=== PATIENT | male | born 1945 | race Hispanic/Latino ===

== ENCOUNTER 2020-09-29 21:16 | Inpatient (IN) | payer OTHER ==
[~2020-09-29] VITALS: Ht 172.7 cm; Wt 105.7 kg
[2020-09-29 21:59] LABS: BASOPHILS # (AUTO) 0.1 (0.0-0.1); BASOPHILS % 0.4 % (0.0-1.0); EOSINOPHILS # (AUTO) 0.1 (0.0-0.4); EOSINOPHILS % 0.7 % (0.0-6.0); HEMOGLOBIN 16.5 g/dL (14.0-18.0); LYMPHOCYTES # (AUTO) 2.8 (1.0-3.2); LYMPHOCYTES % 16.7 % (18.0-39.1); MEAN CORPUSCULAR HGB CONC 32.4 g/dL (31-35); MEAN CORPUSCULAR VOLUME 92.7 fL (81-99); MONOCYTES # (AUTO) 0.8 (0.2-0.8); MONOCYTES % 5.1 % (4.4-11.3); NEUTROPHILS # (AUTO) 12.8 (2.1-6.9); NEUTROPHILS % 76.6 % (38.7-80.0); PLATELET COUNT 323 x10e3/uL (140-360)
[2020-09-29 22:15] LABS: BACTERIA,URINE FEW /HPF; CLARITY,URINE CLEAR (CLEAR); COLOR,URINE YELLOW (YELLOW); EPITHELIAL CELLS,URINE FEW /LPF; KETONES,URINE NEGATIVE (NEGATIVE); LEUKOCYTE ESTERASE ,URINE NEGATIVE (NEGATIVE); NITRITE,URINE NEGATIVE (NEGATIVE); PROTEIN,URINE DIPSTICK NEGATIVE (NEGATIVE); RBC,URINE 0-5 /HPF (0-5); URINE UROBILINOGEN 0.2 mg/dL (0.2 - 1); WBC,URINE (MAN) 0-5 /HPF (0-5)
[2020-09-29 22:20] LABS: AMYLASE 38 U/L (25-125); LIPASE 30 U/L (8-78)
[2020-09-29 22:22] LABS: ALBUMIN/GLOBULIN RATIO 1.1 (0.8-2.0); ANION GAP 16.3 mmol/L (8-16); CALCIUM 9.3 mg/dL (8.4-10.2); CREATININE, SERUM 1.47 mg/dL (0.72-1.25); POTASSIUM 4.3 mmol/L (3.5-5.1)
[2020-09-29 22:28] LABS: CREATINE KINASE MB 2.6 ng/mL (0-5.0)
[2020-09-29] MEDS ORDERED: IOPAMIDOL 370 MG/ML 200 ML INFUS..BTL INJ ONE (22:38)
[2020-09-29] MEDS ORDERED: SODIUM CHLORIDE 0.9% 50ML 50 ML ONE (22:39)
[2020-09-29] MEDS ORDERED: MORPHINE SULFATE INJ 2 MG/ML SYR IV STA (23:49)
[2020-09-29] MEDS ORDERED: ONDANSETRON HCL INJ 2MG/ML 2ML 2 MG/ML VIAL IV STA (23:49)
[2020-09-30] VITALS (8 sets, daily range): BP systolic 113–171; BP diastolic 60–89
[2020-09-30] MEDS ORDERED: PIPERACILLIN/TAZOBAC 3.375 GM VIAL ONE ×2 (00:29→04:17)
[2020-09-30] MEDS: PIPERACILLIN/TAZOBAC 3.375 GM in DEXTROSE 5% 50ML 50 ML IV SCH ×2 (00:34→05:22)
[2020-09-30] MEDS: METRONIDAZOLE 500MG/NS 100ML 100 ML IV SCH ×4 (00:43→18:42)
[2020-09-30] MEDS ORDERED: DEXTROSE 50% SYRINGE 50 ML IV PRN (01:15)
[2020-09-30] MEDS: SODIUM CHLORIDE 0.9% 1000ML 1,000 ML IV SCH ×4 (02:05→23:51)
[2020-09-30] MEDS ORDERED: SODIUM CHLORIDE 0.9% 50ML 50 ML ONE (04:18)
[2020-09-30] MEDS: MORPHINE SULFATE INJ 2 MG/ML SYR IV PRN ×4 (08:56→20:20)
[2020-09-30] MEDS ORDERED: ZEBETA10 MG PO (10:23)
[2020-09-30] MEDS ORDERED: FARXIGA5 MG (10:23)
[2020-09-30] MEDS ORDERED: GLIMEPIRIDE2 MG PO (10:23)
[2020-09-30] MEDS ORDERED: VASOTEC10 M1 PO (10:23)
[2020-09-30] MEDS: PIPERACILLIN/TAZOBAC 3.375 GM in SODIUM CHLORIDE 0.9% 50ML 50 ML IV SCH ×2 (13:45→22:00)
[2020-09-30] MEDS: ONDANSETRON HCL INJ 2MG/ML 2ML 2 MG/ML VIAL IV PRN (20:20)
[2020-09-30] MEDS: ACETAMINOPHEN 325 MG TAB PO PRN (23:56)
[2020-10-01] VITALS (8 sets, daily range): BP systolic 123–156; BP diastolic 53–82
[2020-10-01] MEDS: MORPHINE SULFATE INJ 2 MG/ML SYR IV PRN ×2 (05:18→17:57)
[2020-10-01] MEDS: PIPERACILLIN/TAZOBAC 3.375 GM in SODIUM CHLORIDE 0.9% 50ML 50 ML IV SCH ×3 (05:18→22:12)
[2020-10-01] MEDS: ONDANSETRON HCL INJ 2MG/ML 2ML 2 MG/ML VIAL IV PRN (05:18)
[2020-10-01] MEDS: METRONIDAZOLE 500MG/NS 100ML 100 ML IV SCH ×4 (06:00→17:47)
[2020-10-01 06:16] LABS: BASOPHILS # (AUTO) 0.1 (0.0-0.1); BASOPHILS % 0.4 % (0.0-1.0); HEMATOCRIT 47.2 % (38.2-49.6); HEMOGLOBIN 15.4 g/dL (14.0-18.0); LYMPHOCYTES # (AUTO) 1.6 (1.0-3.2); MEAN CORPUSCULAR HEMOGLOBIN 30.6 pg (28-32); MEAN CORPUSCULAR HGB CONC 32.6 g/dL (31-35); MEAN CORPUSCULAR VOLUME 93.7 fL (81-99); MONOCYTES # (AUTO) 1.2 (0.2-0.8); MONOCYTES % 5.2 % (4.4-11.3); NEUTROPHILS # (AUTO) 19.2 (2.1-6.9); NEUTROPHILS % 86.3 % (38.7-80.0); PLATELET COUNT 252 x10e3/uL (140-360); RED BLOOD COUNT 5.04 x10e6/uL (4.3-5.7); RED CELL DISTRIBUTION WIDTH 13.7 % (11.7-14.4)
[2020-10-01 06:36] LABS: ALBUMIN 2.9 g/dL (3.5-5.0); ALBUMIN/GLOBULIN RATIO 0.8 (0.8-2.0); ANION GAP 15.1 mmol/L (8-16); CALCIUM 8.4 mg/dL (8.4-10.2); CREATININE, SERUM 1.42 mg/dL (0.72-1.25); POTASSIUM 4.1 mmol/L (3.5-5.1)
[2020-10-01 07:25] LABS: BAND NEUTROPHILS % (MANUAL) 4 %; LYMPHOCYTES % (MANUAL) 8 % (19-48); METAMYELOCYTES % (MANUAL) 2 % (0-0); MONOCYTES % (MANUAL) 6 % (3.4-9.0); NEUTROPHILS % (MANUAL) 79 % (40-74)
[2020-10-01 07:26] LABS: PLATELET ESTIMATE ADEQUATE; PLATELET MORPHOLOGY COMMENT NORMAL; RBC MORPHOLOGY COMMENT NORMAL
[2020-10-01] MEDS: SODIUM CHLORIDE 0.9% 1000ML 1,000 ML IV SCH ×2 (09:16→17:47)
[2020-10-01] MEDS: ACETAMINOPHEN 325 MG TAB PO PRN (09:16)
[2020-10-01] MEDS ORDERED: DEXTROSE 50% SYRINGE 50 ML IV PRN (11:45)
[2020-10-01] MEDS: INSULIN REGULAR, HUMAN 100 UNIT/1 ML 3ML VIAL SQ SCH ×2 (16:30→20:00)
[2020-10-01] MEDS: DEXMEDETOMIDINE HCL 200 MCG in SODIUM CHLORIDE 0.9% 50ML 48 ML IV SCH (20:04)
[2020-10-02] VITALS (16 sets, daily range): BP systolic 66–165; BP diastolic 46–83
[2020-10-02] MEDS: MORPHINE SULFATE INJ 2 MG/ML SYR IV PRN ×2 (00:26→06:39)
[2020-10-02] MEDS: METRONIDAZOLE 500MG/NS 100ML 100 ML IV SCH ×2 (00:27→06:39)
[2020-10-02] MEDS: PIPERACILLIN/TAZOBAC 3.375 GM in SODIUM CHLORIDE 0.9% 50ML 50 ML IV SCH (05:48)
[2020-10-02] MEDS: INSULIN REGULAR, HUMAN 100 UNIT/1 ML 3ML VIAL SQ SCH ×3 (07:30→18:00)
[2020-10-02 08:18] LABS: BASOPHILS % 0.4 % (0.0-1.0); HEMATOCRIT 49.2 % (38.2-49.6); HEMOGLOBIN 15.7 g/dL (14.0-18.0); LYMPHOCYTES # (AUTO) 1.2 (1.0-3.2); LYMPHOCYTES % 11.2 % (18.0-39.1); MEAN CORPUSCULAR HEMOGLOBIN 30.3 pg (28-32); MEAN CORPUSCULAR HGB CONC 31.9 g/dL (31-35); MONOCYTES # (AUTO) 0.5 (0.2-0.8); MONOCYTES % 4.6 % (4.4-11.3); NEUTROPHILS % 82.8 % (38.7-80.0); PLATELET COUNT 280 x10e3/uL (140-360); RED BLOOD COUNT 5.18 x10e6/uL (4.3-5.7); RED CELL DISTRIBUTION WIDTH 13.9 % (11.7-14.4)
[2020-10-02 08:37] LABS: ANION GAP 18.2 mmol/L (8-16); CALCIUM 8.9 mg/dL (8.4-10.2); CREATININE, SERUM 1.6 mg/dL (0.72-1.25); POTASSIUM 4.2 mmol/L (3.5-5.1)
[2020-10-02] MEDS ORDERED: HYDROMORPHONE 1MG/1ML INJ ONE (12:42)
[2020-10-02] MEDS ORDERED: ACETAMINOPHEN 1000 MG/100 ML 100 ML IV ONE (12:42)
[2020-10-02] MEDS ORDERED: KETAMINE HCL INJ 50 MG/ML 10 ML VIAL ONE (13:00)
[2020-10-02] MEDS ORDERED: FENTANYL CITRATE/PF 100MCG/2 ML INJ ONE (13:00)
[2020-10-02] MEDS ORDERED: ALBUMIN 25% 12.5GM 50ML 100 ML IV ONE (13:38)
[2020-10-02] MEDS: SODIUM CHLORIDE 0.9% 1000ML 1,000 ML IV SCH ×2 (14:16→18:36)
[2020-10-02] MEDS: BISOPROLOL FUMARATE 10 MG TAB PO SCH (17:00)
[2020-10-02] MEDS ORDERED: LACTATED RINGER'S 1,000 ML INJ ONE (17:00)
[2020-10-02] MEDS ORDERED: ROCURONIUM BROMIDE 10 MG/ML 5ML VIAL IV ONE (17:15)
[2020-10-02] MEDS ORDERED: SEVOFLURANE INHAL SOLN 250 ML PEN BTL ONE (17:15)
[2020-10-02] MEDS ORDERED: LIDOCAINE HCL 2% LOCAL INJ 5 ML SDV VIAL INJ ONE (17:15)
[2020-10-02] MEDS ORDERED: PROPOFOL IV EMULSION 10 MG/ML 20 ML VIAL ONE (17:15)
[2020-10-02] MEDS ORDERED: PHENYLEPHRINE HCL 1% 10 MG/ML VIAL ONE (17:15)
[2020-10-02] MEDS ORDERED: LACTATED RINGER'S 1,000 ML ONE (17:20)
[2020-10-02] MEDS ORDERED: MIDAZOLAM HCL 2 MG/2 ML VIAL ONE (17:27)
[2020-10-02] MEDS ORDERED: FENTANYL CITRATE INJ 2,000 MCG in SODIUM CHLORIDE 0.9% 250ML 210 ML IV SCH (17:45)
[2020-10-02] MEDS: PANTOPRAZOLE 40 MG 10ML VIAL IV SCH (18:32)
[2020-10-02] MEDS: MEROPENEM 1GM 100 ML IV SCH (18:32)
[2020-10-02] MEDS: SODIUM CHLORIDE 0.9% 250ML IRRIG IR SCH (18:36)
[2020-10-02] MEDS ORDERED: DEXMEDETOMIDINE 200MCG/NS 50ML 50 ML IV ONE (19:33)
[2020-10-02] MEDS ORDERED: FENTANYL 2000MCG/NS 250 250 ML ONE (19:34)
[2020-10-02] MEDS ORDERED: NOREPINEPHRINE 8 MG/D5W 250 ML 250 ML ONE (19:51)
[2020-10-02 20:46] LABS: BASOPHILS # (AUTO) 0.1 (0.0-0.1); BASOPHILS % 0.4 % (0.0-1.0); HEMATOCRIT 43.8 % (38.2-49.6); HEMOGLOBIN 13.5 g/dL (14.0-18.0); LYMPHOCYTES # (AUTO) 1.4 (1.0-3.2); MEAN CORPUSCULAR HEMOGLOBIN 29.9 pg (28-32); MEAN CORPUSCULAR HGB CONC 30.8 g/dL (31-35); MEAN CORPUSCULAR VOLUME 96.9 fL (81-99); MONOCYTES % 6.5 % (4.4-11.3); NEUTROPHILS # (AUTO) 13.1 (2.1-6.9); NEUTROPHILS % 83.5 % (38.7-80.0); PLATELET COUNT 315 x10e3/uL (140-360); RED BLOOD COUNT 4.52 x10e6/uL (4.3-5.7); RED CELL DISTRIBUTION WIDTH 14.2 % (11.7-14.4)
[2020-10-02 20:57] LABS: ANION GAP 21.6 mmol/L (8-16); CALCIUM 7.5 mg/dL (8.4-10.2); CREATININE, SERUM 2.75 mg/dL (0.72-1.25); POTASSIUM 4.6 mmol/L (3.5-5.1)
[2020-10-02] MEDS ORDERED: SODIUM CHLORIDE 0.9% 1000ML 2,000 ML IV ONE (21:00)
[2020-10-02 22:06] LABS: BAND NEUTROPHILS % (MANUAL) 11 %; LYMPHOCYTES % (MANUAL) 12 % (19-48); MONOCYTES % (MANUAL) 6 % (3.4-9.0); NEUTROPHILS % (MANUAL) 71 % (40-74)
[2020-10-02 22:07] LABS: PLATELET ESTIMATE ADEQUATE; PLATELET MORPHOLOGY COMMENT NORMAL; RBC MORPHOLOGY COMMENT NORMAL
[2020-10-03] VITALS (26 sets, daily range): BP systolic 87–125; BP diastolic 43–99
[2020-10-03 00:31] LABS: ABG HCO3 16 mmol/L (22-26); ABG PCO2 33 mmHg (35-45); ABG PH 7.31 (7.35-7.45); ABG PO2 273 mmHg (80-105)
[2020-10-03 00:32] LABS: ABG TCO2 17
[2020-10-03] MEDS: SODIUM CHLORIDE 0.9% 250ML IRRIG IR SCH ×7 (01:23→20:15)
[2020-10-03] MEDS: NOREPINEPHRINE INJ 4MG/4ML 8 MG in DEXTROSE 5% 250ML 250 ML IV SCH ×3 (01:24→22:03)
[2020-10-03] MEDS: SODIUM CHLORIDE 0.9% 1000ML 1,000 ML IV SCH ×3 (01:24→23:45)
[2020-10-03] MEDS: MEROPENEM 1GM 100 ML IV SCH ×2 (01:25→09:10)
[2020-10-03] MEDS: INSULIN REGULAR, HUMAN 100 UNIT/1 ML 3ML VIAL SQ SCH ×4 (01:25→18:00)
[2020-10-03] MEDS: DEXMEDETOMIDINE HCL 200 MCG in SODIUM CHLORIDE 0.9% 50ML 48 ML IV SCH (01:28)
[2020-10-03] MEDS: METRONIDAZOLE 500MG/NS 100ML 100 ML IV SCH ×5 (06:19→23:45)
[2020-10-03] MEDS: BISOPROLOL FUMARATE 10 MG TAB PO SCH ×2 (08:25→17:00)
[2020-10-03] MEDS: FENTANYL 2000MCG/NS 250 250 ML IV SCH (09:10)
[2020-10-03 10:00] LABS: ABG HCO3 20 mmol/L (22-26); ABG PCO2 43 mmHg (35-45); ABG PH 7.27 (7.35-7.45); ABG PO2 78 mmHg (80-105); ABG TCO2 21
[2020-10-03] MEDS ORDERED: SODIUM BICARBONATE 8.4% SYRING 150 ML in DEXTROSE 5% 1,000 ML IV ONE (10:00)
[2020-10-03] MEDS ORDERED: SODIUM CHLORIDE 0.9% 1000ML 1,000 ML IV SCH ×3 (10:00→12:15)
[2020-10-03] MEDS ORDERED: SODIUM CHLORIDE 0.9% 1000ML 2,000 ML IV SCH (10:15)
[2020-10-03] MEDS ORDERED: [UNRECOGNIZED DRUG - MIXTURE] IV SCH ×2 (10:30)
[2020-10-03] MEDS ORDERED: SODIUM BICARBONATE 8.4% SYRING 150 ML in DEXTROSE 5% 1,000 ML IV SCH (10:45)
[2020-10-03] MEDS ORDERED: SODIUM CHLORIDE 0.9% 1000ML 200 ML IV ONE (11:00)
[2020-10-03] MEDS ORDERED: ACETAMINOPHEN 1000 MG/100 ML IV PRN (11:15)
[2020-10-03] MEDS ORDERED: FUROSEMIDE INJ 10 MG/ML 4 ML VIAL IV ONE (12:30)
[2020-10-03] MEDS ORDERED: CALCIUM CHLORIDE 13.6 MEQ in SODIUM CHLORIDE 0.9% 100 ML 100 ML IV ONE (12:45)
[2020-10-03 12:56] LABS: BASOPHILS # (AUTO) 0.1 (0.0-0.1); BASOPHILS % 0.3 % (0.0-1.0); EOSINOPHILS % 0.1 % (0.0-6.0); HEMATOCRIT 37.7 % (38.2-49.6); HEMOGLOBIN 11.6 g/dL (14.0-18.0); LYMPHOCYTES # (AUTO) 2.3 (1.0-3.2); LYMPHOCYTES % 12.4 % (18.0-39.1); MEAN CORPUSCULAR HEMOGLOBIN 30.1 pg (28-32); MEAN CORPUSCULAR HGB CONC 30.8 g/dL (31-35); MEAN CORPUSCULAR VOLUME 97.9 fL (81-99); MONOCYTES # (AUTO) 1.8 (0.2-0.8); MONOCYTES % 9.7 % (4.4-11.3); NEUTROPHILS # (AUTO) 14.1 (2.1-6.9); NEUTROPHILS % 75.7 % (38.7-80.0); PLATELET COUNT 287 x10e3/uL (140-360); RED BLOOD COUNT 3.85 x10e6/uL (4.3-5.7); RED CELL DISTRIBUTION WIDTH 14.6 % (11.7-14.4)
[2020-10-03 13:19] LABS: ALBUMIN 1.7 g/dL (3.5-5.0); ALBUMIN/GLOBULIN RATIO 0.6 (0.8-2.0); ANION GAP 12.6 mmol/L (8-16); CREATININE, SERUM 4.1 mg/dL (0.72-1.25); POTASSIUM 4.6 mmol/L (3.5-5.1)
[2020-10-03 13:21] LABS: CALCIUM 6.5 mg/dL (8.4-10.2)
[2020-10-03] MEDS ORDERED: MIDAZOLAM HCL 2 MG/2 ML VIAL ONE (15:26)
[2020-10-03] MEDS: VASOPRESSIN 60 UNIT in DEXTROSE 5% 50ML 57 ML IV SCH (16:56)
[2020-10-03] MEDS ORDERED: LACTATED RINGER'S 1,000 ML INJ ONE (17:00)
[2020-10-03] MEDS: PANTOPRAZOLE 40 MG 10ML VIAL IV SCH (17:42)
[2020-10-03] MEDS ORDERED: SODIUM CHLORIDE 0.9% 1000ML 2,000 ML IV PRN (18:00)
[2020-10-03] MEDS ORDERED: MANNITOL 25% 12.5GM/50 ML VIAL IV PRN (18:00)
[2020-10-03] MEDS ORDERED: HEPARIN SOD (PORCINE) 1000 UNIT/ML SDV IV PRN (18:00)
[2020-10-04] VITALS (24 sets, daily range): BP systolic 96–134; BP diastolic 41–66
[2020-10-04] MEDS: SODIUM CHLORIDE 0.9% 250ML IRRIG IR SCH ×6 (00:26→20:07)
[2020-10-04] MEDS: INSULIN REGULAR, HUMAN 100 UNIT/1 ML 3ML VIAL SQ SCH ×4 (00:47→18:00)
[2020-10-04] MEDS: FENTANYL 2000MCG/NS 250 250 ML IV SCH ×2 (04:59→14:43)
[2020-10-04] MEDS: MEROPENEM 1GM 100 ML IV SCH (05:41)
[2020-10-04] MEDS: METRONIDAZOLE 500MG/NS 100ML 100 ML IV SCH ×3 (05:41→18:22)
[2020-10-04 05:56] LABS: BASOPHILS # (AUTO) 0.1 (0.0-0.1); BASOPHILS % 0.3 % (0.0-1.0); HEMOGLOBIN 10.5 g/dL (14.0-18.0); LYMPHOCYTES # (AUTO) 1.7 (1.0-3.2); LYMPHOCYTES % 8.6 % (18.0-39.1); MEAN CORPUSCULAR HEMOGLOBIN 29.8 pg (28-32); MEAN CORPUSCULAR HGB CONC 30.9 g/dL (31-35); MEAN CORPUSCULAR VOLUME 96.6 fL (81-99); MONOCYTES # (AUTO) 1.4 (0.2-0.8); NEUTROPHILS # (AUTO) 15.6 (2.1-6.9); NEUTROPHILS % 80.1 % (38.7-80.0); PLATELET COUNT 202 x10e3/uL (140-360); RED BLOOD COUNT 3.52 x10e6/uL (4.3-5.7); RED CELL DISTRIBUTION WIDTH 14.7 % (11.7-14.4)
[2020-10-04 06:09] LABS: INR 1.24; PROTHROMBIN TIME 16.3 seconds (11.9-14.5)
[2020-10-04 06:10] LABS: PARTIAL THROMBOPLASTIN TIME 38.4 seconds (23.8-35.5)
[2020-10-04 06:16] LABS: ALBUMIN 1.6 g/dL (3.5-5.0); ALBUMIN/GLOBULIN RATIO 0.5 (0.8-2.0); ANION GAP 12.8 mmol/L (8-16); CREATININE, SERUM 5.29 mg/dL (0.72-1.25); POTASSIUM 4.8 mmol/L (3.5-5.1)
[2020-10-04 06:17] LABS: CALCIUM 6.8 mg/dL (8.4-10.2)
[2020-10-04 08:14] LABS: ABG HCO3 23 mmol/L (22-26); ABG PCO2 53 mmHg (35-45); ABG PH 7.24 (7.35-7.45); ABG PO2 51 mmHg (80-105); ABG TCO2 24
[2020-10-04] MEDS: BISOPROLOL FUMARATE 10 MG TAB PO SCH ×2 (08:14→16:07)
[2020-10-04] MEDS: SODIUM CHLORIDE 0.9% 1000ML 1,000 ML IV SCH ×2 (08:14→21:04)
[2020-10-04] MEDS: NOREPINEPHRINE INJ 4MG/4ML 8 MG in DEXTROSE 5% 250ML 250 ML IV SCH (08:16)
[2020-10-04] MEDS ORDERED: FUROSEMIDE INJ 10 MG/ML 4 ML VIAL IV NR (12:15)
[2020-10-04] MEDS: PANTOPRAZOLE 40 MG 10ML VIAL IV SCH (17:05)
[2020-10-04] MEDS ORDERED: HEPARIN SOD (PORCINE) 5,000 UNIT/ML VIAL SC SCH (21:00)
[2020-10-05] VITALS (25 sets, daily range): BP systolic 95–140; BP diastolic 40–71
[2020-10-05] MEDS: METRONIDAZOLE 500MG/NS 100ML 100 ML IV SCH ×5 (00:14→23:35)
[2020-10-05] MEDS: SODIUM CHLORIDE 0.9% 250ML IRRIG IR SCH ×6 (00:18→20:49)
[2020-10-05] MEDS: FENTANYL 2000MCG/NS 250 250 ML IV SCH ×3 (00:36→20:51)
[2020-10-05] MEDS: NOREPINEPHRINE INJ 4MG/4ML 8 MG in DEXTROSE 5% 250ML 250 ML IV SCH (03:00)
[2020-10-05] MEDS: INSULIN REGULAR, HUMAN 100 UNIT/1 ML 3ML VIAL SQ SCH ×5 (06:00→23:35)
[2020-10-05] MEDS: MEROPENEM 1GM 100 ML IV SCH (06:01)
[2020-10-05 07:46] LABS: BASOPHILS # (AUTO) 0.1 (0.0-0.1); BASOPHILS % 0.3 % (0.0-1.0); EOSINOPHILS # (AUTO) 0.1 (0.0-0.4); EOSINOPHILS % 0.4 % (0.0-6.0); HEMATOCRIT 29.9 % (38.2-49.6); HEMOGLOBIN 9.5 g/dL (14.0-18.0); LYMPHOCYTES # (AUTO) 1.8 (1.0-3.2); LYMPHOCYTES % 10.5 % (18.0-39.1); MEAN CORPUSCULAR HGB CONC 31.8 g/dL (31-35); MEAN CORPUSCULAR VOLUME 94.3 fL (81-99); MONOCYTES % 5.5 % (4.4-11.3); NEUTROPHILS # (AUTO) 13.4 (2.1-6.9); NEUTROPHILS % 76.9 % (38.7-80.0); PLATELET COUNT 206 x10e3/uL (140-360); RED BLOOD COUNT 3.17 x10e6/uL (4.3-5.7); RED CELL DISTRIBUTION WIDTH 14.8 % (11.7-14.4)
[2020-10-05 08:15] LABS: ALBUMIN 1.3 g/dL (3.5-5.0); ALBUMIN/GLOBULIN RATIO 0.4 (0.8-2.0); ANION GAP 14.5 mmol/L (8-16); CREATININE, SERUM 5.35 mg/dL (0.72-1.25); POTASSIUM 4.5 mmol/L (3.5-5.1)
[2020-10-05 08:16] LABS: CALCIUM 6.9 mg/dL (8.4-10.2)
[2020-10-05] MEDS: BISOPROLOL FUMARATE 10 MG TAB PO SCH ×2 (08:38→16:39)
[2020-10-05 09:32] LABS: EOSINOPHILS % (MANUAL) 1 % (0-7); LYMPHOCYTES % (MANUAL) 6 % (19-48); METAMYELOCYTES % (MANUAL) 2 % (0-0); MONOCYTES % (MANUAL) 3 % (3.4-9.0); NEUTROPHILS % (MANUAL) 85 % (40-74); NUCLEATED RED BLOOD CELLS 1; PROMYELOCYTES % (MANUAL) 1 % (0-0); RBC MORPHOLOGY COMMENT NORMAL; SMUDGE CELLS FEW
[2020-10-05 09:33] LABS: PLATELET ESTIMATE ADEQUATE; PLATELET MORPHOLOGY COMMENT NORMAL
[2020-10-05 10:23] LABS: ABG HCO3 24 mmol/L (22-26); ABG PCO2 46 mmHg (35-45); ABG PH 7.32 (7.35-7.45); ABG PO2 65 mmHg (80-105); ABG TCO2 25
[2020-10-05] MEDS: SODIUM CHLORIDE 0.9% 1000ML 1,000 ML IV SCH (10:24)
[2020-10-05] MEDS ORDERED: FLUCONAZOLE 400MG/200ML BAG 200 ML IV ONE (13:00)
[2020-10-05] MEDS ORDERED: CALCIUM CHLORIDE 13.6 MEQ in SODIUM CHLORIDE 0.9% 100 ML 100 ML IV ONE (14:30)
[2020-10-05] MEDS: FUROSEMIDE INJ 100 MG in SODIUM CHLORIDE 0.9% 100 ML 90 ML IV SCH (14:51)
[2020-10-05] MEDS: PANTOPRAZOLE 40 MG 10ML VIAL IV SCH (17:26)
[2020-10-05] MEDS: DEXMEDETOMIDINE HCL 200 MCG in SODIUM CHLORIDE 0.9% 50ML 48 ML IV SCH (19:00)
[2020-10-06] VITALS (24 sets, daily range): BP systolic 99–141; BP diastolic 46–74
[2020-10-06] MEDS: SODIUM CHLORIDE 0.9% 250ML IRRIG IR SCH ×6 (00:15→20:30)
[2020-10-06 05:03] LABS: BASOPHILS # (AUTO) 0.1 (0.0-0.1); BASOPHILS % 0.4 % (0.0-1.0); EOSINOPHILS # (AUTO) 0.2 (0.0-0.4); EOSINOPHILS % 1.1 % (0.0-6.0); HEMATOCRIT 27.4 % (38.2-49.6); HEMOGLOBIN 9.1 g/dL (14.0-18.0); LYMPHOCYTES # (AUTO) 1.8 (1.0-3.2); LYMPHOCYTES % 10.3 % (18.0-39.1); MEAN CORPUSCULAR HEMOGLOBIN 30.4 pg (28-32); MEAN CORPUSCULAR HGB CONC 33.2 g/dL (31-35); MEAN CORPUSCULAR VOLUME 91.6 fL (81-99); MONOCYTES # (AUTO) 0.9 (0.2-0.8); MONOCYTES % 5.2 % (4.4-11.3); NEUTROPHILS # (AUTO) 12.9 (2.1-6.9); NEUTROPHILS % 74.5 % (38.7-80.0); PLATELET COUNT 213 x10e3/uL (140-360); RED BLOOD COUNT 2.99 x10e6/uL (4.3-5.7); RED CELL DISTRIBUTION WIDTH 14.4 % (11.7-14.4)
[2020-10-06 05:30] LABS: ALBUMIN 1.3 g/dL (3.5-5.0); ALBUMIN/GLOBULIN RATIO 0.4 (0.8-2.0); CREATININE, SERUM 4.38 mg/dL (0.72-1.25)
[2020-10-06] MEDS: MEROPENEM 1GM 100 ML IV SCH (05:35)
[2020-10-06] MEDS: METRONIDAZOLE 500MG/NS 100ML 100 ML IV SCH ×4 (05:35→23:42)
[2020-10-06] MEDS: INSULIN REGULAR, HUMAN 100 UNIT/1 ML 3ML VIAL SQ SCH ×3 (06:00→18:00)
[2020-10-06] MEDS: FUROSEMIDE INJ 100 MG in SODIUM CHLORIDE 0.9% 100 ML 90 ML IV SCH (06:06)
[2020-10-06] MEDS: FENTANYL 2000MCG/NS 250 250 ML IV SCH ×2 (06:08→21:01)
[2020-10-06] MEDS: BISOPROLOL FUMARATE 10 MG TAB PO SCH ×2 (08:06→16:31)
[2020-10-06] MEDS: FLUCONAZOLE 200 MG/100 ML 100 ML IV SCH (09:14)
[2020-10-06] MEDS ORDERED: MIDAZOLAM HCL 2 MG/2 ML VIAL ONE (13:28)
[2020-10-06] MEDS: VASOPRESSIN 60 UNIT in DEXTROSE 5% 50ML 57 ML IV SCH (16:30)
[2020-10-06] MEDS: PANTOPRAZOLE 40 MG 10ML VIAL IV SCH (17:18)
[2020-10-06] MEDS ORDERED: CALCIUM CHLORIDE 13.6 MEQ in SODIUM CHLORIDE 0.9% 100 ML 100 ML IV ONE (17:30)
[2020-10-06] MEDS: DEXMEDETOMIDINE HCL 200 MCG in SODIUM CHLORIDE 0.9% 50ML 48 ML IV SCH (17:45)
[2020-10-06] MEDS: NOREPINEPHRINE INJ 4MG/4ML 8 MG in DEXTROSE 5% 250ML 250 ML IV SCH (21:00)
[2020-10-07] VITALS (39 sets, daily range): BP systolic 1–181; BP diastolic 40–92
[2020-10-07] MEDS: SODIUM CHLORIDE 0.9% 250ML IRRIG IR SCH ×6 (00:30→20:30)
[2020-10-07] MEDS: FUROSEMIDE INJ 100 MG in SODIUM CHLORIDE 0.9% 100 ML 90 ML IV SCH ×4 (03:03→19:42)
[2020-10-07] MEDS: FENTANYL 2000MCG/NS 250 250 ML IV SCH (04:02)
[2020-10-07] MEDS: METRONIDAZOLE 500MG/NS 100ML 100 ML IV SCH (05:40)
[2020-10-07] MEDS: INSULIN REGULAR, HUMAN 100 UNIT/1 ML 3ML VIAL SQ SCH ×4 (06:00→17:29)
[2020-10-07 06:18] LABS: BASOPHILS # (AUTO) 0.2 (0.0-0.1); BASOPHILS % 0.7 % (0.0-1.0); EOSINOPHILS # (AUTO) 0.3 (0.0-0.4); HEMATOCRIT 30.2 % (38.2-49.6); HEMOGLOBIN 9.9 g/dL (14.0-18.0); LYMPHOCYTES # (AUTO) 3.4 (1.0-3.2); LYMPHOCYTES % 12.3 % (18.0-39.1); MEAN CORPUSCULAR HEMOGLOBIN 30.1 pg (28-32); MEAN CORPUSCULAR HGB CONC 32.8 g/dL (31-35); MEAN CORPUSCULAR VOLUME 91.8 fL (81-99); MONOCYTES # (AUTO) 1.6 (0.2-0.8); MONOCYTES % 5.6 % (4.4-11.3); NEUTROPHILS # (AUTO) 19.6 (2.1-6.9); NEUTROPHILS % 69.8 % (38.7-80.0); PLATELET COUNT 343 x10e3/uL (140-360); RED BLOOD COUNT 3.29 x10e6/uL (4.3-5.7); RED CELL DISTRIBUTION WIDTH 14.6 % (11.7-14.4)
[2020-10-07] MEDS: MEROPENEM 1GM 100 ML IV SCH (06:45)
[2020-10-07 06:54] LABS: ALBUMIN 1.5 g/dL (3.5-5.0); ALBUMIN/GLOBULIN RATIO 0.4 (0.8-2.0); ANION GAP 15.7 mmol/L (8-16); CALCIUM 7.7 mg/dL (8.4-10.2); CREATININE, SERUM 5.95 mg/dL (0.72-1.25); POTASSIUM 4.7 mmol/L (3.5-5.1)
[2020-10-07 07:33] LABS: BAND NEUTROPHILS % (MANUAL) 1 %; EOSINOPHILS % (MANUAL) 1 % (0-7); LYMPHOCYTES % (MANUAL) 11 % (19-48); MONOCYTES % (MANUAL) 6 % (3.4-9.0); MYELOCYTES % (MANUAL) 4 % (0-0); NEUTROPHILS % (MANUAL) 77 % (40-74); NUCLEATED RED BLOOD CELLS 2; PLATELET ESTIMATE ADEQUATE; RBC MORPHOLOGY COMMENT NORMAL
[2020-10-07 07:34] LABS: ANISOCYTOSIS SLIGHT; POIKILOCYTOSIS SLIGHT
[2020-10-07 07:35] LABS: PLATELET MORPHOLOGY COMMENT RARE EDTA CLUMPING
[2020-10-07] MEDS: BISOPROLOL FUMARATE 10 MG TAB PO SCH ×2 (07:40→16:48)
[2020-10-07] MEDS: FLUCONAZOLE 200 MG/100 ML 100 ML IV SCH (08:27)
[2020-10-07] MEDS: DEXMEDETOMIDINE HCL 200 MCG in SODIUM CHLORIDE 0.9% 50ML 48 ML IV SCH ×6 (09:00→23:00)
[2020-10-07] MEDS ORDERED: SODIUM CHLORIDE 0.9% 250ML 500 ML IV PRN (10:15)
[2020-10-07] MEDS ORDERED: ALBUMIN 25% 12.5GM 0.25 GM/ML BTL IV PRN (10:15)
[2020-10-07] MEDS ORDERED: HEPARIN SOD (PORCINE) 1000 UNIT/ML SDV IV PRN ×2 (10:15)
[2020-10-07] MEDS ORDERED: ALBUMIN 25% 25GM 100ML 0.25 GM/ML BTL IV PRN (10:15)
[2020-10-07] MEDS: HYDROMORPHONE 1MG/1ML INJ IV PRN ×3 (10:45→19:43)
[2020-10-07] MEDS ORDERED: DEXMEDETOMIDINE 200MCG/NS 50ML 50 ML IV ONE ×2 (11:23→13:10)
[2020-10-07] MEDS ORDERED: CALCIUM CHLORIDE 13.6 MEQ in SODIUM CHLORIDE 0.9% 100 ML 100 ML IV ONE (12:00)
[2020-10-07] MEDS: VANCOMYCIN 250MG/5ML ORAL SOLN PO SCH ×2 (13:25→16:35)
[2020-10-07] MEDS ORDERED: DEXMEDETOMIDINE 200MCG/NS 50ML 100 ML IV ONE (15:44)
[2020-10-07] MEDS: VASOPRESSIN 60 UNIT in DEXTROSE 5% 50ML 57 ML IV SCH (16:24)
[2020-10-07] MEDS: PANTOPRAZOLE 40 MG 10ML VIAL IV SCH (16:34)
[2020-10-07] MEDS: NOREPINEPHRINE INJ 4MG/4ML 8 MG in DEXTROSE 5% 250ML 250 ML IV SCH (21:00)
[2020-10-07] MEDS: CENTRAL TPN FORMULA 1 BAG IV SCH (21:06)
[2020-10-07] MEDS: HEPARIN SOD (PORCINE) 5,000 UNIT/ML VIAL SC SCH (21:07)
[2020-10-08] VITALS (26 sets, daily range): BP systolic 101–150; BP diastolic 47–84
[2020-10-08] MEDS: SODIUM CHLORIDE 0.9% 250ML IRRIG IR SCH ×6 (01:00→20:00)
[2020-10-08] MEDS: VANCOMYCIN 250MG/5ML ORAL SOLN PO SCH ×5 (01:00→23:48)
[2020-10-08] MEDS: INSULIN REGULAR, HUMAN 100 UNIT/1 ML 3ML VIAL SQ SCH ×5 (02:00→23:51)
[2020-10-08] MEDS: DEXMEDETOMIDINE HCL 200 MCG in SODIUM CHLORIDE 0.9% 50ML 48 ML IV SCH ×7 (02:00→16:19)
[2020-10-08] MEDS: HYDROMORPHONE 1MG/1ML INJ IV PRN ×3 (03:00→12:37)
[2020-10-08] MEDS ORDERED: DEXMEDETOMIDINE 200MCG/NS 50ML 50 ML IV ONE ×2 (04:41→06:19)
[2020-10-08 04:54] LABS: CALCIUM IONIZED 1.1 mmol/L (1.09-1.30)
[2020-10-08 06:40] LABS: BASOPHILS # (AUTO) 0.1 (0.0-0.1); BASOPHILS % 0.5 % (0.0-1.0); EOSINOPHILS # (AUTO) 0.2 (0.0-0.4); HEMATOCRIT 26.2 % (38.2-49.6); HEMOGLOBIN 8.8 g/dL (14.0-18.0); LYMPHOCYTES # (AUTO) 1.1 (1.0-3.2); LYMPHOCYTES % 5.9 % (18.0-39.1); MEAN CORPUSCULAR HEMOGLOBIN 30.2 pg (28-32); MEAN CORPUSCULAR HGB CONC 33.6 g/dL (31-35); MONOCYTES % 5.1 % (4.4-11.3); NEUTROPHILS % 78.4 % (38.7-80.0); PLATELET COUNT 368 x10e3/uL (140-360); RED BLOOD COUNT 2.91 x10e6/uL (4.3-5.7); RED CELL DISTRIBUTION WIDTH 14.4 % (11.7-14.4)
[2020-10-08 06:58] LABS: ALBUMIN 1.6 g/dL (3.5-5.0); ALBUMIN/GLOBULIN RATIO 0.5 (0.8-2.0); ANION GAP 15.5 mmol/L (8-16); CALCIUM 7.6 mg/dL (8.4-10.2); CREATININE, SERUM 4.14 mg/dL (0.72-1.25); POTASSIUM 3.5 mmol/L (3.5-5.1)
[2020-10-08] MEDS: BISOPROLOL FUMARATE 10 MG TAB PO SCH ×2 (08:44→17:00)
[2020-10-08] MEDS: HEPARIN SOD (PORCINE) 5,000 UNIT/ML VIAL SC SCH ×2 (08:51→20:41)
[2020-10-08 09:23] LABS: EOSINOPHILS % (MANUAL) 1 % (0-7); LYMPHOCYTES % (MANUAL) 9 % (19-48); MONOCYTES % (MANUAL) 4 % (3.4-9.0); MYELOCYTES % (MANUAL) 3 % (0-0); NEUTROPHILS % (MANUAL) 83 % (40-74)
[2020-10-08] MEDS: FUROSEMIDE INJ 100 MG in SODIUM CHLORIDE 0.9% 100 ML 90 ML IV SCH (10:50)
[2020-10-08] MEDS ORDERED: POTASSIUM CHLORIDE 20MEQ/100ML 100 ML IV ONE (12:45)
[2020-10-08] MEDS ORDERED: FENTANYL CITRATE INJ 2,000 MCG in SODIUM CHLORIDE 0.9% 250ML 210 ML IV SCH ×3 (12:45→16:30)
[2020-10-08 14:04] LABS: ABG HCO3 27 mmol/L (22-26); ABG PCO2 28 mmHg (35-45); ABG PH 7.58 (7.35-7.45); ABG PO2 69 mmHg (80-105); ABG TCO2 27
[2020-10-08] MEDS: VASOPRESSIN 60 UNIT in DEXTROSE 5% 50ML 57 ML IV SCH (16:30)
[2020-10-08] MEDS: FENTANYL 2000MCG/NS 250 250 ML IV SCH (16:45)
[2020-10-08] MEDS: PANTOPRAZOLE 40 MG 10ML VIAL IV SCH (17:32)
[2020-10-08] MEDS: DEXMEDETOMIDINE 200MCG/NS 50ML 50 ML IV PRN ×2 (19:30→22:00)
[2020-10-08] MEDS: CENTRAL TPN FORMULA 1 BAG IV SCH (20:41)
[2020-10-08] MEDS: NOREPINEPHRINE INJ 4MG/4ML 8 MG in DEXTROSE 5% 250ML 250 ML IV SCH (21:00)
[2020-10-09] VITALS (26 sets, daily range): BP systolic 88–146; BP diastolic 47–73
[2020-10-09] MEDS: SODIUM CHLORIDE 0.9% 250ML IRRIG IR SCH ×6 (00:15→20:30)
[2020-10-09] MEDS: ACETAMINOPHEN 325 MG/10 ML UDC NG PRN ×2 (00:23→14:51)
[2020-10-09] MEDS: DEXMEDETOMIDINE 200MCG/NS 50ML 50 ML IV PRN ×10 (01:30→22:00)
[2020-10-09] MEDS: FENTANYL 2000MCG/NS 250 250 ML IV SCH (05:16)
[2020-10-09 06:09] LABS: BASOPHILS # (AUTO) 0.1 (0.0-0.1); BASOPHILS % 0.4 % (0.0-1.0); EOSINOPHILS # (AUTO) 0.2 (0.0-0.4); HEMATOCRIT 26.4 % (38.2-49.6); HEMOGLOBIN 8.8 g/dL (14.0-18.0); LYMPHOCYTES # (AUTO) 1.2 (1.0-3.2); LYMPHOCYTES % 7.8 % (18.0-39.1); MEAN CORPUSCULAR HEMOGLOBIN 29.9 pg (28-32); MEAN CORPUSCULAR HGB CONC 33.3 g/dL (31-35); MEAN CORPUSCULAR VOLUME 89.8 fL (81-99); MONOCYTES # (AUTO) 0.9 (0.2-0.8); MONOCYTES % 6.1 % (4.4-11.3); NEUTROPHILS # (AUTO) 11.7 (2.1-6.9); NEUTROPHILS % 77.8 % (38.7-80.0); PLATELET COUNT 456 x10e3/uL (140-360); RED BLOOD COUNT 2.94 x10e6/uL (4.3-5.7); RED CELL DISTRIBUTION WIDTH 15.2 % (11.7-14.4)
[2020-10-09] MEDS: VANCOMYCIN 250MG/5ML ORAL SOLN PO SCH ×3 (06:13→17:40)
[2020-10-09] MEDS: INSULIN REGULAR, HUMAN 100 UNIT/1 ML 3ML VIAL SQ SCH ×3 (06:13→17:42)
[2020-10-09 06:35] LABS: ANION GAP 15.3 mmol/L (8-16); CREATININE, SERUM 3.41 mg/dL (0.72-1.25); PHOSPHORUS 5.2 MG/DL (2.3-4.7); POTASSIUM 3.3 mmol/L (3.5-5.1)
[2020-10-09 06:43] LABS: CALCIUM IONIZED 1.2 mmol/L (1.09-1.30)
[2020-10-09 07:05] LABS: ALBUMIN 1.6 g/dL (3.5-5.0); ALBUMIN/GLOBULIN RATIO 0.5 (0.8-2.0); ANION GAP 14.2 mmol/L (8-16); CALCIUM 7.9 mg/dL (8.4-10.2); CREATININE, SERUM 3.39 mg/dL (0.72-1.25); POTASSIUM 3.2 mmol/L (3.5-5.1)
[2020-10-09] MEDS: BISOPROLOL FUMARATE 10 MG TAB PO SCH ×2 (08:44→16:29)
[2020-10-09] MEDS: HEPARIN SOD (PORCINE) 5,000 UNIT/ML VIAL SC SCH ×2 (08:52→20:50)
[2020-10-09 08:54] LABS: BAND NEUTROPHILS % (MANUAL) 4 %; EOSINOPHILS % (MANUAL) 1 % (0-7); LYMPHOCYTES % (MANUAL) 6 % (19-48); MONOCYTES % (MANUAL) 5 % (3.4-9.0); NEUTROPHILS % (MANUAL) 84 % (40-74)
[2020-10-09] MEDS: HYDROMORPHONE 1MG/1ML INJ IV PRN ×3 (10:40→22:00)
[2020-10-09] MEDS ORDERED: POTASSIUM CHLORIDE 20MEQ/100ML 200 ML IV ONE (12:45)
[2020-10-09] MEDS: FUROSEMIDE INJ 100 MG in SODIUM CHLORIDE 0.9% 100 ML 90 ML IV SCH (15:25)
[2020-10-09] MEDS: PANTOPRAZOLE 40 MG 10ML VIAL IV SCH (16:32)
[2020-10-09] MEDS: CENTRAL TPN FORMULA 1 BAG IV SCH (20:00)
[2020-10-10] VITALS (19 sets, daily range): BP systolic 84–153; BP diastolic 48–95
[2020-10-10] MEDS: DEXMEDETOMIDINE 200MCG/NS 50ML 50 ML IV PRN ×3 (02:00→04:30)
[2020-10-10] MEDS: SODIUM CHLORIDE 0.9% 250ML IRRIG IR SCH ×6 (04:30→20:15)
[2020-10-10] MEDS: FUROSEMIDE INJ 100 MG in SODIUM CHLORIDE 0.9% 100 ML 90 ML IV SCH (05:00)
[2020-10-10] MEDS: FENTANYL 2000MCG/NS 250 250 ML IV SCH (05:30)
[2020-10-10 05:52] LABS: BASOPHILS # (AUTO) 0.1 (0.0-0.1); BASOPHILS % 0.6 % (0.0-1.0); EOSINOPHILS # (AUTO) 0.3 (0.0-0.4); EOSINOPHILS % 1.5 % (0.0-6.0); HEMATOCRIT 29.6 % (38.2-49.6); HEMOGLOBIN 9.8 g/dL (14.0-18.0); LYMPHOCYTES % 14.5 % (18.0-39.1); MEAN CORPUSCULAR HEMOGLOBIN 30.1 pg (28-32); MEAN CORPUSCULAR HGB CONC 33.1 g/dL (31-35); MEAN CORPUSCULAR VOLUME 90.8 fL (81-99); MONOCYTES # (AUTO) 1.4 (0.2-0.8); MONOCYTES % 6.9 % (4.4-11.3); NEUTROPHILS # (AUTO) 14.6 (2.1-6.9); NEUTROPHILS % 70.9 % (38.7-80.0); PLATELET COUNT 597 x10e3/uL (140-360); RED BLOOD COUNT 3.26 x10e6/uL (4.3-5.7); RED CELL DISTRIBUTION WIDTH 16.2 % (11.7-14.4)
[2020-10-10 06:00] LABS: ALBUMIN 1.8 g/dL (3.5-5.0); ALBUMIN/GLOBULIN RATIO 0.5 (0.8-2.0); ANION GAP 16.2 mmol/L (8-16); CALCIUM 8.2 mg/dL (8.4-10.2); CREATININE, SERUM 2.83 mg/dL (0.72-1.25); POTASSIUM 3.2 mmol/L (3.5-5.1)
[2020-10-10] MEDS: VANCOMYCIN 250MG/5ML ORAL SOLN PO SCH ×2 (06:00)
[2020-10-10] MEDS: INSULIN REGULAR, HUMAN 100 UNIT/1 ML 3ML VIAL SQ SCH ×4 (06:18→18:27)
[2020-10-10] MEDS: BISOPROLOL FUMARATE 10 MG TAB PO SCH ×2 (08:07→16:53)
[2020-10-10 08:40] LABS: ABG HCO3 31 mmol/L (22-26); ABG PCO2 40 mmHg (35-45); ABG PH 7.49 (7.35-7.45); ABG PO2 67 mmHg (80-105); ABG TCO2 32
[2020-10-10] MEDS: HEPARIN SOD (PORCINE) 5,000 UNIT/ML VIAL SC SCH ×2 (09:18→21:00)
[2020-10-10] MEDS: ACETAMINOPHEN 325 MG/10 ML UDC NG PRN ×2 (10:36)
[2020-10-10] MEDS ORDERED: CEFEPIME HCL 1 GM VIAL IV SCH (11:15)
[2020-10-10] MEDS ORDERED: MAGNESIUM HYDROXIDE 30 ML UDC PO ONE (11:15)
[2020-10-10 11:34] LABS: PHOSPHORUS 5.9 MG/DL (2.3-4.7)
[2020-10-10] MEDS: CEFEPIME HCL 1GM 1 GM in SODIUM CHLORIDE 0.9% 50ML 50 ML IV SCH ×2 (11:40→21:00)
[2020-10-10] MEDS ORDERED: ETOMIDATE 2 MG/ML 10 ML INJ IV ONE (12:29)
[2020-10-10] MEDS ORDERED: VECURONIUM BROMIDE FOR INJ 20 MG VIAL ONE (12:29)
[2020-10-10] MEDS ORDERED: WATER STERILE 10 ML VIAL ONE (12:29)
[2020-10-10] MEDS ORDERED: MIDAZOLAM HCL 2 MG/2 ML VIAL ONE (12:29)
[2020-10-10] MEDS ORDERED: SODIUM BICARBONATE 8.4% INJ 50 ML SYR ONE (12:30)
[2020-10-10] MEDS ORDERED: EPINEPHRINE HCL SYRINGE ONE (12:30)
[2020-10-10] MEDS ORDERED: DEXTROSE 50% SYRINGE 50 ML IV ONE (12:30)
[2020-10-10] MEDS ORDERED: CALCIUM CHLORIDE 10% 1.36 MEQ/ML 10ML SYR IV ONE (12:30)
[2020-10-10] MEDS ORDERED: KCL 20MEQ/.9 SOD CHL 1,000 ML IV SCH (14:00)
[2020-10-10] MEDS ORDERED: METRONIDAZOLE 250MG/NS 50ML 50 ML IV SCH (14:00)
[2020-10-10] MEDS ORDERED: POTASSIUM CHLORIDE 20MEQ/100ML 100 ML IV ONE (15:00)
[2020-10-10] MEDS: ONDANSETRON HCL INJ 2MG/ML 2ML 2 MG/ML VIAL IV PRN (15:25)
[2020-10-10] MEDS ORDERED: NOREPINEPHRINE 8 MG/D5W 250 ML 250 ML ONE (15:46)
[2020-10-10] MEDS ORDERED: SODIUM CHLORIDE 0.9% 1000ML 1,000 ML ONE (15:54)
[2020-10-10] MEDS: NOREPINEPHRINE 8 MG/D5W 250 ML 250 ML IV SCH ×2 (15:58→20:11)
[2020-10-10] MEDS: PANTOPRAZOLE 40 MG 10ML VIAL IV SCH (16:53)
[2020-10-10] MEDS: SODIUM CHLORIDE 0.9% 1000ML 1,000 ML IV SCH ×3 (17:05→19:02)
[2020-10-10 17:17] LABS: BASOPHILS # (AUTO) 0.1 (0.0-0.1); BASOPHILS % 0.4 % (0.0-1.0); EOSINOPHILS % 0.1 % (0.0-6.0); HEMATOCRIT 30.5 % (38.2-49.6); HEMOGLOBIN 9.7 g/dL (14.0-18.0); LYMPHOCYTES # (AUTO) 1.6 (1.0-3.2); LYMPHOCYTES % 9.4 % (18.0-39.1); MEAN CORPUSCULAR HGB CONC 31.8 g/dL (31-35); MEAN CORPUSCULAR VOLUME 94.4 fL (81-99); MONOCYTES # (AUTO) 0.4 (0.2-0.8); MONOCYTES % 2.5 % (4.4-11.3); NEUTROPHILS # (AUTO) 13.8 (2.1-6.9); NEUTROPHILS % 82.7 % (38.7-80.0); PLATELET COUNT 673 x10e3/uL (140-360); RED BLOOD COUNT 3.23 x10e6/uL (4.3-5.7); RED CELL DISTRIBUTION WIDTH 16.8 % (11.7-14.4)
[2020-10-10 17:21] LABS: INR 1.29; PROTHROMBIN TIME 16.8 seconds (11.9-14.5)
[2020-10-10 17:22] LABS: PARTIAL THROMBOPLASTIN TIME 38.8 seconds (23.8-35.5)
[2020-10-10 17:29] LABS: ALBUMIN 1.6 g/dL (3.5-5.0); ALBUMIN/GLOBULIN RATIO 0.4 (0.8-2.0); ANION GAP 24.3 mmol/L (8-16); CALCIUM 7.7 mg/dL (8.4-10.2); CREATININE, SERUM 3.02 mg/dL (0.72-1.25); POTASSIUM 4.3 mmol/L (3.5-5.1)
[2020-10-10 17:45] LABS: ABG HCO3 22 mmol/L (22-26); ABG PCO2 37 mmHg (35-45); ABG PH 7.39 (7.35-7.45); ABG PO2 107 mmHg (80-105); ABG TCO2 23
[2020-10-10 17:47] LABS: CREATINE KINASE MB 1.3 ng/mL (0-5.0)
[2020-10-10 19:01] LABS: BAND NEUTROPHILS % (MANUAL) 11 %; LYMPHOCYTES % (MANUAL) 10 % (19-48); METAMYELOCYTES % (MANUAL) 2 % (0-0); MONOCYTES % (MANUAL) 1 % (3.4-9.0); MYELOCYTES % (MANUAL) 3 % (0-0); NEUTROPHILS % (MANUAL) 73 % (40-74); PLATELET ESTIMATE MARKEDLY INCREASED; PLATELET MORPHOLOGY COMMENT FEW GIANT
[2020-10-10 19:02] LABS: POLYCHROMASIA FEW
[2020-10-10] MEDS ORDERED: VASOPRESSIN 60 UNIT in DEXTROSE 5% 50ML 57 ML IV PRN (19:30)
[2020-10-10] MEDS ORDERED: SODIUM CHLORIDE 0.9% 1000ML 1,000 ML IV ONE (19:50)
[2020-10-10] MEDS ORDERED: SODIUM CHLORIDE 0.9% 1000ML 1,000 ML IV SCH (20:00)
[2020-10-10] MEDS: CENTRAL TPN FORMULA 1 BAG IV SCH (20:05)
[2020-10-11] MEDS ORDERED: FUROSEMIDE INJ 10 MG/ML 4 ML VIAL IV SCH (09:00)
[2020-10-11] MEDS ORDERED: SODIUM CHLORIDE 0.9% 1000ML 1,000 ML IV SCH (20:00)
== END 2020-10-10 23:59 | disposition expired | DRG 853 ==
LOC: ER 21:45 → ERHOLD 09-30 01:11 → MED/SURG3 09-30 02:30 → ICU 10-02 15:27
PROVIDERS: ADMIT Internal Medicine; ATTEND Internal Medicine
PROC: 0DTN0ZZ Resection of Sigmoid Colon, Open Approach (ICD-10-PCS; 2020-10-02)
PROC: 0D1N0Z4 Bypass Sigmoid Colon to Cutaneous, Open Approach (ICD-10-PCS; 2020-10-02)
PROC: 02HV33Z Insertion of Infusion Device into Superior Vena Cava, Percutaneous Approach (ICD-10-PCS; 2020-10-02)
PROC: 3E1M38Z Irrigation of Peritoneal Cavity using Irrigating Substance, Percutaneous Approach (ICD-10-PCS; 2020-10-02)
PROC: 5A1955Z Respiratory Ventilation, Greater than 96 Consecutive Hours (ICD-10-PCS; principal; 2020-10-02 12:09)
PROC: 5A1D70Z Performance of Urinary Filtration, Intermittent, Less than 6 Hours Per Day (ICD-10-PCS; 2020-10-03)
PROC: 02HV33Z Insertion of Infusion Device into Superior Vena Cava, Percutaneous Approach (ICD-10-PCS; 2020-10-04)
PROC: 0BH18EZ Insertion of Endotracheal Airway into Trachea, Via Natural or Artificial Opening Endoscopic (ICD-10-PCS; 2020-10-10)
PROC: 0BH17EZ Insertion of Endotracheal Airway into Trachea, Via Natural or Artificial Opening (ICD-10-PCS; 2020-10-10)
PROC: 5A1935Z Respiratory Ventilation, Less than 24 Consecutive Hours (ICD-10-PCS; 2020-10-10)
DX: A41.9 Sepsis, unspecified organism (principal); R65.21 Severe sepsis with septic shock; J96.00 Acute respiratory failure, unspecified whether with hypoxia or hypercapnia; J95.2 Acute pulmonary insufficiency following nonthoracic surgery; J18.9 Pneumonia, unspecified organism; N17.9 Acute kidney failure, unspecified; E87.2 Acidosis; K57.20 Diverticulitis of large intestine with perforation and abscess without bleeding; E11.9 Type 2 diabetes mellitus without complications; I10 Essential (primary) hypertension; Z20.822 Contact with and (suspected) exposure to COVID-19; K59.00 Constipation, unspecified; E87.6 Hypokalemia
CPT/HCPCS: 36415; 36600; 71045; 74177; 76604; 80048; 80053; 81001; 82150; 82550; 82553; 82805; 82948; 83690; 83735; 84100; 84484; 85025; 85610; 85730; 86704; 86705; 86706; 86707; 87040; 87070; 87205; 87340; 87350; 88307; 90962; 92950; 93005; 94002; 94003; 96361; 96365; 96372; 99251; 99284; J0171; J0692; J1170; J1450; J1644; J1817; J1940; J2001; J2150; J2250; J2270; J2370; J2405; J2543; J3010; J3480; J7030; J7070; J7121; J7799; P9047; Q9967; U0002